=== PATIENT | male | born 1980 | race African-American/Black ===

== ENCOUNTER 2024-07-06 17:55 | Emergency (ER) | payer OTHER, SELFPAY ==
[2024-07-06] VITALS (27 sets, daily range): BP systolic 134–153; BP diastolic 77–115; PULSE 70–87; RESP 15–29; TEMP 37.1; O2SAT 95–100
--- NOTE | ~2024-07-06 | CT_ITS ---
EXAMINATION: CT brain wo con DATE: 07/06/2024 19:47 INDICATION: Head injury. TECHNIQUE: Computed tomography (CT) of the head was performed without intravenous contrast. The mA wa s adjusted according to patient size. Iterative reconstruction technique was employed. The dose-lengt h product was 681.00 mGy-cm. COMPARISON: None FINDINGS: There is no intracranial hemorrhage, acute infarction, or abnormal intracranial mass lesion . The ventricles are normal in size. There is mild mucosal thickening in the paranasal sinuses. The o rbits are normal. The mastoid air cells are normal. IMPRESSION: 1. Normal brain. Reviewed, dictated and finalized at location E. IMPRESSION: 1. Normal brain.
--- NOTE | ~2024-07-06 | CT_ITS ---
EXAMINATION: CT cervical spine wo con DATE: 07/06/2024 19:47 INDICATION: Neck injury. TECHNIQUE: Computed tomography (CT) of the cervical spine was performed without intravenous contrast. Automated exposure control and iterative reconstruction technique were employed. The dose-length pro duct was 344.72 mGy-cm. COMPARISON: None FINDINGS: Bone alignment is normal. Vertebral body heights and intervertebral disc heights are normal . The following disc levels are specifically discussed: C2-C3: There is mild bilateral uncovertebral joint osteoarthritis. There is mild right and moderate l eft facet joint osteoarthritis. There is no neural foraminal stenosis. There is no central canal sten osis. C3-C4: There is mild left uncovertebral joint osteoarthritis. There is no facet joint osteoarthritis. There is no neural foraminal stenosis. There is no central canal stenosis. C4-C5: There is mild right uncovertebral joint osteoarthritis. There is mild left facet joint osteoar thritis. There is no neural foraminal stenosis. There is no central canal stenosis. C5-C6: There is mild left uncovertebral joint osteoarthritis. There is no facet joint osteoarthritis. There is no neural foraminal stenosis. There is no central canal stenosis. C6-C7: There is no uncovertebral joint osteoarthritis. There is no facet joint osteoarthritis. There is no neural foraminal stenosis. There is no central canal stenosis. C7-T1: There is no uncovertebral joint osteoarthritis. There is mild bilateral facet joint osteoarthr itis. There is no neural foraminal stenosis. There is no central canal stenosis. IMPRESSION: 1. No fracture. 2. Mild cervical spondylosis. Reviewed, dictated and finalized at location E.
--- NOTE | ~2024-07-06 | CT_ITS ---
[facility] DATE: 07/06/2024 19:57 INDICATION: Chest and abdominal injury. Back injury. TECHNIQUE: Computed tomography (CT) of the chest, abdomen, pelvis, thoracic spine, and lumbar spine w as performed with 100 mL Omnipaque 350 intravenous contrast. Automated exposure control and iterative reconstruction technique were employed. The dose-length product was 1512.24 mGy-cm. COMPARISON: None FINDINGS: CT CHEST: The lungs demonstrate mild dependent atelectasis. No pleural effusion. The heart size is no rmal. No pericardial effusion. There is bilateral gynecomastia. There is a fracture of left 10th rib. CT ABDOMEN AND PELVIS: The liver, gallbladder, spleen, pancreas, and adrenal glands, and kidneys are normal. There are no dilated loops of bowel. The appendix is normal. There are no pathologically enla rged lymph nodes. There is no free intraperitoneal fluid. CT THORACIC SPINE: Bone alignment is normal. Vertebral body heights are normal. There is mildly decre ased disc height at T4-T5. There is multilevel mild facet joint osteoarthritis. No neural foraminal s tenosis or central canal stenosis. CT LUMBAR SPINE: Bone alignment is normal. There is a compression fracture of L5 with less than 1/5 l oss of height. There are nondisplaced fractures of the superior facets of L5. There is mildly decreas ed disc height at L5-S1. The following disc levels are specifically discussed: L1-L2: The disc does not extend beyond the endplate margin. There is no facet joint osteoarthritis. T here is no neural foraminal stenosis. There is no central canal stenosis. L2-L3: The disc does not extend beyond the endplate margin. There is mild bilateral facet joint osteo arthritis. There is no neural foraminal stenosis. There is no central canal stenosis. L3-L4: The disc is bulging. There is no facet joint osteoarthritis. There is mild bilateral neural fo raminal stenosis. There is mild central canal stenosis. L4-L5: The disc is bulging. There is mild bilateral facet joint osteoarthritis. There is mild bilater al neural foraminal stenosis. There is mild central canal stenosis. L5-S1: The disc is bulging. There is moderate bilateral facet joint osteoarthritis. There is moderate right and mild left neural foraminal stenosis. There is mild central canal stenosis. IMPRESSION: 1. Left 10th rib fracture. 2. L5 compression fracture. Fractures of the L5 superior facets. Reviewed, dictated and finalized at location E.
--- NOTE | ~2024-07-06 | XR_ITS ---
EXAMINATION: XR knee LT 3V DATE: 07/06/2024 21:28 INDICATION: Left knee injury. TECHNIQUE: 3 views of left knee were obtained. COMPARISON: None. FINDINGS: Alignment is normal. There is a nondisplaced transverse fracture of head of proximal fibula . There is mild osteoarthritis of patellofemoral compartment. There is a large knee joint effusion. IMPRESSION: 1. Nondisplaced transverse fracture of head of proximal fibula. 2. Large knee joint effusion. 3. Mild left knee osteoarthritis. Reviewed, dictated and finalized at location E.
--- NOTE | ~2024-07-06 | XR_ITS ---
EXAMINATION: XR chest 1V portable DATE: 07/06/2024 18:59 INDICATION: Fall. TECHNIQUE: A single frontal view of the chest was obtained. COMPARISON: None. FINDINGS: There is no pneumonia, pleural effusion, or pneumothorax. The heart size is normal. IMPRESSION: 1. No acute cardiopulmonary disease. Reviewed, dictated and finalized at location E.
--- NOTE | ~2024-07-06 | XR_ITS ---
EXAMINATION: XR pelvis 1-2V DATE: 07/06/2024 18:59 INDICATION: Fall. TECHNIQUE: An anteroposterior view of the pelvis was obtained. COMPARISON: None. FINDINGS: Bone alignment is normal. No fracture. There is mild osteoarthritis of the hips. IMPRESSION: 1. Mild osteoarthritis of the hips. Reviewed, dictated and finalized at location E.
--- NOTE | 2024-07-06 18:15 | ECG_ITS ---
Test Date: 2024-07-06 18:20:46 Measurements Intervals [place] Rate: 80 P: 49 CA: 161 QRS: 46 QRSD: 84 T: 16 QT: 335 QTc: 387 Interpretive Statements SINUS RHYTHM No previous ECG available for comparison Electronically Signed On 07-07-2024 13:40:11 CDT by Ady Meyers M.D.
[2024-07-06 18:41] LABS: Basophils Percent Auto 0.1 % (0.2-1.2); Eosinophils Percent Auto 0.2 % (0-4.4); Hemoglobin 12.7 g/dL (14.0-18.0); Immature Granulocyte Absolute 0.17 K/mm3 (0.00-0.031); Immature Granulocyte Percent A 1.2 % (0-0.5); Lymphocytes Absolute Auto 1.07 K/mm3 (0.9-3.2); Lymphocytes Percent Auto 7.4 % (18.3-44.2); Mean Corpuscular HGB Conc 32.6 g/dl (32-36); Mean Corpuscular Hemoglobin 29.3 pg (26-34); Mean Corpuscular Volume 90.1 fl (80-100); Mean Platelet Volume 10.2 fl (7.4-10.4); Monocytes Absolute Auto 0.6 K/mm3 (0.1-0.6); Monocytes Percent Auto 4.1 % (2.6-8.5); Neutrophils Absolute Auto 12.5 K/mm3 (1.3-6.7); Platelet Count Result 291 k/mm3 (150-375); Red Blood Count 4.33 M/mm3 (4.6-6.20); Red Cell Distribution Width 12.3 % (11.5-14.5); White Blood Count 14.4 K/mm3 (4.5-10.0)
[2024-07-06 18:51] LABS: Alanine Aminotransferase 25 U/L (6-50); Albumin Level 4.4 g/dL (3.5-5.1); Alkaline Phosphatase 60 U/L (38-126); Anion Gap 11 mmol/L (4-12); Aspartate Amino Transferase 44 U/L (17-59); Bilirubin,Total 0.7 mg/dL (0.2-1.3); Blood Urea Nitrogen 15 mg/dL (9-20); Carbon Dioxide 25 mmol/L (22-30); Chloride 103 mmol/L (98-107); Estimated CRCL calculation 66 ml/min; Estimated Glomerular Filt Rate 56; Glucose 101 mg/dL (65-110); Potassium 3.9 mmol/L (3.4-5.0); Sodium 139 mmol/L (137-145)
[2024-07-06 19:03] LABS: Troponin I < 0.012 ng/mL (0.000-0.034)
[2024-07-06 19:08] LABS: Creatine Kinase 489 U/L (55-170)
[2024-07-06] MEDS: ONDANSETRON INJ 4 MG/2 ML VIAL IV PUSH (19:19)
[2024-07-06] MEDS: LACTATED RINGERS 1,000 ML 999 ML IV CONT (19:19)
[2024-07-06] MEDS: MORPHINE SULFATE (*CRX) 4 MG/ML INJ 6 MG IV PUSH (19:19)
--- NOTE | 2024-07-06 19:20 | PC.NURSE ---
Report received from DANK Hollingsworth. Assumed care of patient at this time.
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
--- NOTE | 2024-07-06 20:30 | PC.NURSE ---
Report called to DANK Mercer at [facility] [place].
[2024-07-06 21:09] LABS: INR 1.1; Partial Thromboplastin Time 29.2 Seconds (22.3-36.8); Prothrombin Time 14.7 Seconds (11.1-14.7)
--- NOTE | 2024-07-06 21:11 | PC.NURSE ---
SHWETA per patient c-spine is cleared and c-collar removed. Patient also c/o left knee pain, ERP notified and order placed for imaging.
[2024-07-06 21:12] LABS: Add Urine Microscopic? YES; Appearance Urine Clear (Clear); Bacteria Urine None Seen /hpf; Bilirubin Urine Negative (Negative); Blood Urine 2+ (Negative); Color Urine Yellow (Yellow); Glucose Urine UA Negative (Negative); Ketones Urine Trace mg/dL (Negative); Leukocyte Esterase Ur Negative LEU/UL (Negative); Nitrate Urine Negative (Negative); Non Pathogenic Casts 0-2; Protein Urine 1+ mg/dL (Negative); RBC Urine 21-50 /hpf (0-2); Specific Grav Ur 1.044 (1.001-1.035); Squamous Epithelial Cell Urine None Seen /hpf (Few); WBC Urine 0-5 /hpf (0-3)
[2024-07-07] VITALS: PULSE 72; RESP 20; O2SAT 100
[2024-07-07 00:01] VITALS: BP 135/74; PULSE 73; RESP 18; O2SAT 99
[2024-07-07] MEDS: MORPHINE SULFATE (*CRX) 4 MG/ML INJ 6 MG IV PUSH (00:11)
[2024-07-07 00:15] VITALS: PULSE 79; RESP 19; O2SAT 99
--- NOTE | 2024-07-07 00:34 | PC.NURSE ---
0030 This RN called [facility] ER and spoke with Enedelia to inform of update on fx of left knee.
[2024-07-07 00:38] VITALS: BP 130/68; PULSE 72; RESP 18; O2SAT 99
--- NOTE | 2024-07-07 01:06 | PC.NURSE ---
[facility] here to transfer patient to [facility] ER. Patient transferred with his chart and belongings.
[2024-07-07 01:07] VITALS: BP 129/76; PULSE 73; RESP 17; TEMP 36.6; O2SAT 99
== END 2024-07-07 01:09 | disposition short-term general hospital (02) ==
PROVIDERS: Student in an Organized Health Care Education/Training Program; Emergency Provider Student in an Organized Health Care Education/Training Program
DX: S06.0X9A Concussion with loss of consciousness of unspecified duration, initial encounter (principal); R55 Syncope and collapse; T21.31XA Burn of third degree of chest wall, initial encounter; T21.32XA Burn of third degree of abdominal wall, initial encounter; T31.0 Burns involving less than 10% of body surface; W85.XXXA Exposure to electric transmission lines, initial encounter
CPT/HCPCS: 36415; 70450; 71045; 71260; 72125; 72129; 72132; 72170; 73562; 74177; 80053; 81001; 82550; 84484; 85025; 85610; 85730; 93005; 96361; 96374; 96375; 99285; J2270; J2405; J7120; Q9967